=== PATIENT | male | born 1990 | race American Indian/Alaskan Native ===

== ENCOUNTER 2021-02-06 01:09 | Emergency (ER) | payer SELFPAY ==
--- NOTE | 2021-02-06 01:22 | Emergency Department Report ---
<ALAM GASCASUZANNE Castellanos - Last Filed: 02/06/21 05:12> ED Alcohol HPI - General Chief Complaint: Alcohol Stated Complaint: ETOH Time Seen by Provider: 02/06/21 01:14 Source: patient, EMS Mode of arrival: Stretcher Limitations: Altered Mental Status, Physical Limitation - History of Present Illness Initial Comments: Patient is a 30-year-old male presents emerged from for acute alcohol intoxication. Patient brought in EMS. EMS states they found asleep on the side of the road. Patient told EMS that he was just drinking. Patient states he drank a lot. Patient lethargic but easily arousable. Patient answering questions appropriately. Patient has slurred speech. Patient states he drank a lot today. Patient denies trauma. Patient denies hitting his head. Patient denies recent travel. Patient denies recent international travel. Patient denies exposure to the novel coronavirus. Patient denies sick contacts. Patient denies fever and chills. Patient denies cough. Patient denies diarrhea. Patient denies coming in contact with anybody with symptoms of the novel coronavirus. MD Complaint: alcohol intoxication Last Drink: just [employer] Chronic Alcohol Use: Yes Previous Visits for Alcohol Intoxication?: No Recent Trauma: No Associated Symptoms: denies other symptoms Treatments Prior to Arrival: none - Related Data Allergies Allergy/AdvReac Type Severity Reaction Status Date / Time Unable to Assess Allergy Unverified 02/06/21 01:19 ED Review of Systems Constitutional: denies: chills, fever Eyes: denies: eye pain, eye discharge, vision change ENT: denies: ear pain, throat pain Respiratory: denies: cough, shortness of breath, wheezing Cardiovascular: denies: chest pain, palpitations Endocrine: no symptoms reported Gastrointestinal: denies: abdominal pain, nausea, diarrhea Genitourinary: denies: urgency, dysuria Musculoskeletal: denies: back pain, joint swelling, arthralgia Skin: denies: rash, lesions Neurological: denies: headache, weakness, paresthesias Psychiatric: denies: anxiety, depression, auditory hallucinations, visual hallucinations, homicidal thoughts, suicidal thoughts Hematological/Lymphatic: denies: easy bleeding, easy bruising ED Past Medical Hx - Past Medical History Previous Medical History?: Yes Additional medical history: unable to obtain - Surgical History Past Surgical History?: Yes Additional Surgical History: unable to obtain ED Physical Exam - General Limitations: Altered Mental Status General appearance: alert, in no apparent distress, appears intoxicated - Head Head exam: Present: atraumatic, normocephalic - Eye Eye exam: Present: normal appearance, PERRL Pupils: Present: normal accommodation - ENT ENT exam: Present: mucous membranes moist - Neck Neck exam: Present: normal inspection - Respiratory Respiratory exam: Present: normal lung sounds bilaterally. Absent: respiratory distress, wheezes - Cardiovascular Cardiovascular Exam: Present: regular rate, normal rhythm. Absent: systolic murmur, diastolic murmur, rubs, gallop - GI/Abdominal GI/Abdominal exam: Present: soft, normal bowel sounds. Absent: distended, tenderness, guarding - Rectal Rectal exam: Present: deferred - Extremities Exam Extremities exam: Present: normal inspection - Back Exam Back exam: Present: normal inspection - Neurological Exam Neurological exam: Present: alert, oriented X3 - Psychiatric Psychiatric exam: Present: normal affect, normal mood - Skin Skin exam: Present: warm, dry, intact, normal color. Absent: rash ED Course - Reevaluation(s) Reevaluation #1: Patient more awake. Patient is still clinically appropriate. Patient actually pulled his IV out. Patient will have an IV started. Patient blood alcohol elevated. 02/06/21 03:05 Reevaluation #2: I discussed all results and clinical findings with patient. I discussed plan of care with patient. Patient agrees with plan of care. Patient will remain in the ER until the patient is clinically sober. Patient agrees to stay in the ER. Patient states he is not having to pick him up. Once the patient is clinically sober, the patient can be discharged patient given discharge instructions. 02/06/21 06:04 ED Medical Decision Making - Lab Data Result diagrams: 02/06/21 01:52 02/06/21 01:52 - Medical Decision Making Patient is a 28-year-old male that presents emergency room for alcohol intoxication and altered mental status. Patient had labs done which were essentially unremarkable except for elevated blood alcohol level. Patient alcohol was significantly elevated. Patient given a banana bag and IV fluids. Patient was monitored for several hours. Patient slowly improved. Patient's altered mental status was improving while in ER. Patient remained in the ER un til the patient was clinically sober. Once the patient was clinically sober the patient was discharged home. Patient given discharge instructions. - Differential Diagnosis Acute alcohol intoxication, decreased responsiveness, ED Disposition Clinical Impression: Alcohol intoxication Qualifiers: Complication of substance-induced condition: uncomplicated Qualified Code(s): F10.920 - Alcohol use, unspecified with intoxication, uncomplicated Disposition: DC-01 TO HOME OR SELFCARE Is pt being admited?: No Does the pt Need Aspirin: No Condition: Stable Instructions: Binge-Drinking Information, Adult Additional Instructions: Patient to follow-up with primary care in 2 to 3 days. Patient to avoid alcohol use. Patient to rest. Patient to increase water. Patient to take Tylenol or ibuprofen as needed for pain. Patient to return to the ER if condition worsens, changes or new symptoms arise. Referrals: PRIMARY CARE,MD [Primary Care Provider] - 2-3 Days Time of Disposition: 05:39 <CEDRIC HOWARD - Last Filed: 02/06/21 09:18> ED Review of Systems ROS: Stated complaint: ETOH Other details as noted in HPI ED Course Vital Signs 02/06/21 02/06/21 02/06/21 01:15 02:41 03:41 Temperature 97.6 F Pulse Rate 91 H 94 H Respiratory 19 15 Rate Blood Pressure 112/79 123/96 Blood Pressure 101/64 [Left] O2 Sat by Pulse 98 92 Oximetry 02/06/21 02/06/21 02/06/21 03:49 05:50 06:01 Temperature 98 F Pulse Rate 77 Respiratory 18 Rate Blood Pressure 131/85 Blood Pressure 131/85 [Left] O2 Sat by Pulse 100 96 99 Oximetry - Reevaluation(s) Reevaluation #3: 02/06/21 09:18 RN informed me that patient awakened asking for food. I asked the nurse to discharge Mr. Yip. ED Medical Decision Making - Lab Data Result diagrams: 02/06/21 01:52 02/06/21 01:52 Critical care attestation.: If time is entered above; I have spent that time in minutes in the direct care of this critically ill patient, excluding procedure time. ED Disposition Is pt being admited?: No Does the pt Need Aspirin: No
[2021-02-06] MEDS ORDERED: SODIUM CHLORIDE 0.9% 1000 ML 1,000 ML IV ONE (01:32)
[2021-02-06 02:20] LABS: Basophils # (Auto) 0.1 K/mm3 (0.0-0.1); Basophils % (Auto) 1.9 % (0.0-1.8); Eosinophils # (Auto) 0.1 K/mm3 (0.0-0.4); Eosinophils % (Auto) 1.8 % (0.0-4.3); Hematocrit 36.2 % (35.5-45.6); Hemoglobin 12.3 gm/dl (11.8-15.2); Lymphocytes # (Auto) 3.6 K/mm3 (1.2-5.4); Lymphocytes % (Auto) 47.4 % (13.4-35.0); Mean Corpuscular HGB Conc 34 % (32-34); Mean Corpuscular Volume 92 fl (84-94); Monocytes # (Auto) 0.6 K/mm3 (0.0-0.8); Monocytes % (Auto) 7.6 % (0.0-7.3); Platelet Count 303 K/mm3 (140-440); Red Blood Count 3.96 M/mm3 (3.65-5.03); Red Cell Distribution Width 14.4 % (13.2-15.2)
[2021-02-06] MEDS ORDERED: THIAMINE 100 MG, FOLIC ACID 1 MG, MULTIPLE VITAMIN INJ, ADULT 10 ML in SODIUM CHLORIDE ... IV ONE (02:32)
[2021-02-06 02:44] LABS: Alanine Aminotransferase 25 units/L (7-56); Albumin 3.5 g/dL (3.9-5); BUN/Creatinine Ratio 8; Blood Urea Nitrogen 7 mg/dL (9-20); Calcium 7.8 mg/dL (8.4-10.2); Hemolysis Index 2
[2021-02-06 09:29] VITALS: BP 133/93
== END 2021-02-06 09:29 | disposition home or self-care (01) ==
LOC: ED 01:09
DX: F10.920 Alcohol use, unspecified with intoxication, uncomplicated (principal)
CPT/HCPCS: 36415; 80053; 85025; 96365; 96366; 99284; J3411; J7030; 80320; G0480